=== PATIENT | male | born 1985 | race Caucasian/White ===

== ENCOUNTER 2019-05-28 15:10 | Emergency (ER) | payer SELFPAY ==
[~2019-05-28] VITALS: Ht 203.2 cm; Wt 172.7 kg
[~2019-05-28 15:10] MED LIST: AMOXICILLIN875 MG PO; BACTRIM DS 8001 TAB PO; CEPHALEXIN500 M1 PO; MELATONIN3 M1 PO; MOTRIN 800800 MG/TAB PO; NORCO 325 MG-51 TAB PO; ULTRAM 50MG TAB50 MG PO
[2019-05-28 15:15] VITALS: BP 148/108; PULSE 106; TEMP 97.8
[2019-05-28] MEDS ORDERED: AMOXICILLIN 50500 MG PO (15:34)
[2019-05-28 15:44] LABS: STREP SCREEN POSITIVE
== END 2019-05-28 15:45 | disposition home or self-care (01) ==
LOC: COL.ER 15:10
PROVIDERS: Family Medicine
DX: J03.80 Acute tonsillitis due to other specified organisms (principal); B96.89 Other specified bacterial agents as the cause of diseases classified elsewhere

== ENCOUNTER 2019-09-16 20:24 | Emergency (ER) | payer SELFPAY ==
[~2019-09-16] VITALS: Ht 203.2 cm; Wt 168.2 kg
[~2019-09-16 20:24] MED LIST changes: +AMOXICILLIN 50500 MG PO
[2019-09-16 22:27] VITALS: BP 164/110; PULSE 75; TEMP 98.2
== END 2019-09-16 22:28 | disposition home or self-care (01) ==
LOC: COL.ER 20:24
DX: H11.151 Pinguecula, right eye (principal); Z79.891 Long term (current) use of opiate analgesic

== ENCOUNTER 2020-05-26 18:09 | Emergency (ER) | payer SELFPAY ==
[~2020-05-26] VITALS: Ht 203.2 cm; Wt 170.5 kg
[2020-05-26 18:16] VITALS: TEMP 98.3
[2020-05-26 19:14] VITALS: BP 165/97; PULSE 91
== END 2020-05-26 19:23 | disposition home or self-care (01) ==
LOC: COL.ER 18:09
DX: H10.9 Unspecified conjunctivitis (principal); R03.0 Elevated blood-pressure reading, without diagnosis of hypertension; F17.210 Nicotine dependence, cigarettes, uncomplicated

== ENCOUNTER 2021-08-12 18:11 | Emergency (ER) | payer SELFPAY ==
[~2021-08-12] VITALS: Ht 190.5 cm; Wt 127.3 kg
[2021-08-12 19:02] LABS: BASO # 0.1 K/mm3 (0.0-0.2); BASO % 0.4 % (0.0-2.0); EOS # 0.1 K/mm3 (0.0-0.7); EOS % 0.9 % (0.0-4.0); GRAN # 10.1 K/mm3 (1.4-6.5); GRAN % 74.2 % (42.2-75.2); HEMATOCRIT 46.1 % (42.0-52.0); HEMOGLOBIN 15.7 g/dl (13.5-18.0); LYMPH # 2.2 K/mm3 (1.2-3.4); LYMPH % 15.9 % (20.0-51.0); MEAN CELL VOLUME 81 fl (80.0-100.0); MEAN CORPUSCULAR HEMOGLOBIN 28 pg (27-31); MEAN CORPUSCULAR HGB CONC 34 g/dl (33.0-37.0); MEAN PLATELET VOLUME 11.2 fl (7.4-10.4); MONO # 1.1 K/mm3 (0.1-0.6); MONO % 8.2 % (1.7-9.3); PLATELET COUNT 238 K/mm3 (130-400); RED BLOOD COUNT 5.67 M/mm3 (4.20-5.60); REDCELL DISTRIBUTION WIDTH-CV 14.2 % (11.5-14.5)
[2021-08-12 19:16] LABS: COLLECTION METHOD CLEAN CATCH
[2021-08-12 19:19] LABS: ALBUMIN 3.9 gm/dL (3.5-5.0); BILIRUBIN,TOTAL 1.2 mg/dL (0.2-1.2); C-REACTIVE PROTEIN 9.79 mg/dL (0.00-0.50); CALCIUM 9.2 mg/dL (8.4-10.2); CREATININE, serum 1.13 mg/dL (0.72-1.25); POTASSIUM 3.9 mmol/L (3.5-4.5); TOTAL PROTEIN 7.5 gm/dL (6.2-8.1)
[2021-08-12 19:24] LABS: PH 6 (5-8); SQUAMOUS EPITHELIAL None Seen /hpf (0-10); URINE APPEARANCE Clear (CLEAR/HAZY); URINE BACTERIA None Seen /hpf (NONE SEEN); URINE BILIRUBIN Negative (NEGATIVE); URINE BLOOD Negative (NEGATIVE); URINE COLOR Yellow (YELLOW); URINE GLUCOSE 3+ (NEGATIVE); URINE KETONE Negative (NEGATIVE); URINE LEUKOCYTE ESTERASE Negative (NEGATIVE); URINE NITRATE Negative (NEGATIVE); URINE PROTEIN(semi-quant) Negative (NEGATIVE); URINE RBC 0-2 /hpf (0-2); URINE UROBILINOGEN Negative (NEGATIVE)
[2021-08-12] MEDS ORDERED: CLEOCIN HCL300 MG PO (20:15)
[2021-08-12 20:30] VITALS: BP 148/103; PULSE 108; TEMP 99
== END 2021-08-12 20:32 | disposition home or self-care (01) ==
LOC: COL.ER 18:11
PROVIDERS: Emergency Medicine
DX: L03.116 Cellulitis of left lower limb (principal); L03.115 Cellulitis of right lower limb; D72.829 Elevated white blood cell count, unspecified; R79.82 Elevated C-reactive protein (CRP); R00.0 Tachycardia, unspecified

== ENCOUNTER 2021-12-31 17:40 | Emergency (ER) | payer SELFPAY ==
[~2021-12-31] VITALS: Ht 203.2 cm; Wt 159.1 kg
[~2021-12-31 17:40] MED LIST changes: +CLEOCIN HCL300 MG PO
[2021-12-31 18:28] LABS: BASO # 0.1 K/mm3 (0.0-0.2); BASO % 0.3 % (0.0-2.0); EOS # 0.1 K/mm3 (0.0-0.7); EOS % 0.3 % (0.0-4.0); GRAN # 15.6 K/mm3 (1.4-6.5); GRAN % 86.4 % (42.2-75.2); HEMATOCRIT 40.7 % (42.0-52.0); LYMPH # 1.5 K/mm3 (1.2-3.4); LYMPH % 8.1 % (20.0-51.0); MEAN CELL VOLUME 81 fl (80.0-100.0); MEAN CORPUSCULAR HEMOGLOBIN 28 pg (27-31); MEAN CORPUSCULAR HGB CONC 34 g/dl (33.0-37.0); MEAN PLATELET VOLUME 10.3 fl (7.4-10.4); MONO # 0.8 K/mm3 (0.1-0.6); MONO % 4.4 % (1.7-9.3); PLATELET COUNT 337 K/mm3 (130-400); RED BLOOD COUNT 5.05 M/mm3 (4.20-5.60); REDCELL DISTRIBUTION WIDTH-CV 14.4 % (11.5-14.5)
[2021-12-31 18:46] LABS: ALBUMIN 3.6 gm/dL (3.5-5.0); BILIRUBIN,TOTAL 0.9 mg/dL (0.2-1.2); CALCIUM 9.8 mg/dL (8.4-10.2); CREATININE, serum 0.94 mg/dL (0.72-1.25); POTASSIUM 4.1 mmol/L (3.5-4.5); TOTAL PROTEIN 7.9 gm/dL (6.2-8.1)
[2021-12-31] MEDS ORDERED: DOXYCYCLINE 10100 MG PO (20:52)
[2021-12-31 21:55] VITALS: BP 148/94; PULSE 98; TEMP 98.1
== END 2021-12-31 21:59 | disposition home or self-care (01) ==
LOC: COL.ER 17:40
PROVIDERS: Physician Assistant
DX: E11.621 Type 2 diabetes mellitus with foot ulcer (principal); L97.429 Non-pressure chronic ulcer of left heel and midfoot with unspecified severity; D72.829 Elevated white blood cell count, unspecified; F17.290 Nicotine dependence, other tobacco product, uncomplicated
CPT/HCPCS: J7030